=== PATIENT | female | born 1935 | race Caucasian/White ===

== ENCOUNTER 2016-10-08 12:39 | Emergency (ER) | payer MEDICARE, OTHER ==
[~2016-10-08] VITALS: Ht 149.9 cm; Wt 47.6 kg
[~2016-10-08 12:39] MED LIST: BABY81CH; BYSTOLIC; CALCCHW12; CALCITONIN; COLA100C2; CRES5TAB; FISH1000; GARLPOW; LASI20TA; LEVOXYL25 MCG; LIDO5DIS; LISI10TA4; LISI2.5T; MOM; NITR0.4S; RANEXA; THERGRAN; TOPR50TA; VITAMIN D50000 UNT; WELCHOL; XALATAN; ZEGERID; ZETI10TA; ZOCO20TA; ZYLO100T; [UNRECOGNIZED DRUG - OTHER]
[2016-10-08] MEDS ORDERED: LEVO75TA4 PO (13:02)
[2016-10-08] MEDS ORDERED: AMLO25TA PO (13:02)
[2016-10-08] MEDS ORDERED: BYST10TA2 PO (13:02)
[2016-10-08] MEDS ORDERED: ASPI81TA85 PO (13:02)
[2016-10-08] MEDS ORDERED: NEXI40CA PO (13:02)
[2016-10-08] MEDS ORDERED: ZETI10TA2 PO (13:02)
[2016-10-08] MEDS ORDERED: ISOS30TAB PO (13:02)
[2016-10-08] MEDS ORDERED: ALLO10TA PO (13:02)
[2016-10-08] MEDS ORDERED: LINZ290C PO (13:02)
[2016-10-08] MEDS ORDERED: LOSA50TA20 PO (13:02)
[2016-10-08] MEDS ORDERED: SIMV40TA2 PO (13:02)
--- NOTE | 2016-10-08 15:02 | REP ---
Left lower extremity Duplex Doppler venous ultrasound: Real time compression and duplex Doppler interrogation of the left lower extremity deep venous system is performed. The left common femoral, superficial femoral and popliteal veins are fully compressible with transducer pressure and demonstrate normal spontaneous and phasic flow, without evidence of deep venous thrombosis. Impression: No evidence of deep venous thrombosis of the left lower extremity femoral popliteal venous system. Signed by Jaylon Sterling MD 10/08/2016 02:53 P
--- NOTE | 2016-10-08 15:17 | REP ---
LEFT LOWER LEG: AP and lateral views of the left lower leg performed. There is no acute fracture or dislocation. There is chondrocalcinosis in the medial knee joint. IMPRESSION: No fracture or dislocation. Signed by Jaylon Sterling MD 10/08/2016 05:40 P
--- NOTE | 2016-10-08 15:23 | REP ---
LEFT FOOT SERIES: Four views of the left foot performed. There is an old healed fracture of the 1st metatarsal. No acute fracture or dislocation is seen. There is mild inferior calcaneal spurring. There is mild dorsal tarsal spurring and there is narrowing and subchondral sclerosis at the tarsometatarsal joints. IMPRESSION: Old healed fracture 1st metatarsal. No acute fracture or dislocation. Signed by Jaylon Sterling MD 10/08/2016 05:40 P
[2016-10-08 15:30] VITALS: BP 145/68
[2016-10-22] MEDS ORDERED: GAS180CA7 PO (15:52)
[2016-10-22] MEDS ORDERED: COLA100C3 PO (15:52)
[2016-10-22] MEDS ORDERED: CALC250T PO (15:52)
[2016-10-22] MEDS ORDERED: PREDNISONE ACETATE OU (15:52)
[2016-10-22] MEDS ORDERED: VITA200028 PO (15:52)
[2016-10-22] MEDS ORDERED: TIMOXEOPD OD (15:52)
[2016-10-22] MEDS ORDERED: OSTETAB4 PO (15:52)
[2016-10-29] MEDS ORDERED: REST0.05 OU (07:59)
== END 2016-10-08 15:34 | disposition home or self-care (01) ==
LOC: M ED 13:41
DX: M79.672 Pain in left foot (principal); I25.10 Atherosclerotic heart disease of native coronary artery without angina pectoris; E11.9 Type 2 diabetes mellitus without complications; I10 Essential (primary) hypertension; M10.9 Gout, unspecified; E03.9 Hypothyroidism, unspecified; Z88.0 Allergy status to penicillin; Z88.5 Allergy status to narcotic agent; Z91.040 Latex allergy status; Z88.8 Allergy status to other drugs, medicaments and biological substances; Z79.899 Other long term (current) drug therapy; Z79.82 Long term (current) use of aspirin; E78.00 Pure hypercholesterolemia, unspecified; K21.9 Gastro-esophageal reflux disease without esophagitis; H40.9 Unspecified glaucoma; E05.90 Thyrotoxicosis, unspecified without thyrotoxic crisis or storm; M19.90 Unspecified osteoarthritis, unspecified site

== ENCOUNTER → 2016-10-29 | Outpatient (CLI) | payer MEDICARE, OTHER ==
[~2016-10-29] VITALS: Ht 147.3 cm; Wt 47.6 kg
[~2016-10-29] MED LIST changes: +ALLO10TA PO; +AMLO25TA PO; +ASPI81TA85 PO; +BYST10TA2 PO; +CALC250T PO; +COLA100C3 PO; +GAS180CA7 PO; +ISOS30TAB PO; +LEVO75TA4 PO; +LIDOCAINE 2% INJ 100 MG/5 ML SDV (FOR ANES.) As Ordered ONE; +LINZ290C PO; +LOSA50TA20 PO; +NEXI40CA PO; +NS 1,000 ML IV ONE; +OSTETAB4 PO; +PREDNISONE ACETATE OU; +PROPOFOL 200 MG/20 ML VIAL As Ordered ONE; +REST0.05 OU; +SIMV40TA2 PO; +TIMOXEOPD OD; +VITA200028 PO; +ZETI10TA2 PO; +fentaNYL 100 MCG/2 ML INJECTION (J3010) As Ordered ONE
--- NOTE | 2016-10-29 08:46 | ROOR ---
Patient Name: Lucita Rahman Procedure Date: 10/29/2016 8:28 AM Date of : 1935 Age: 81 Room: [facility] Gender: Female Note Status: Finalized Procedure: Upper GI endoscopy Indications: Heartburn Providers: Abel CONTRERAS MD Referring MD: SABINE BURKS MD Requesting Provider: Medicines: Monitored Anesthesia Care Complications: No immediate complications. Procedure: Pre-Anesthesia Assessment: - The heart rate, respiratory rate, oxygen saturations, blood pressure, adequacy of pulmonary ventilation, and response to care were monitored throughout the procedure. The Endoscope was introduced through the mouth, and advanced to the second part of duodenum. The upper GI endoscopy was accomplished without difficulty. The patient tolerated the procedure well. Findings: A small hiatal hernia was present. The esophagus was normal. The stomach was normal. The examined duodenum was normal. Impression: - Small hiatal hernia. - Normal esophagus. - Normal stomach. - Normal examined duodenum. - No specimens collected. Recommendation: - Continue present medications. - Use Zegerid (omeprazole+bicarb) 40 mg tab by mouth daily. Abel Contreras MD Abel CONTRERAS MD 10/29/2016 8:46:06 AM This report has been signed electronically. Number of Addenda: 0 Note Initiated On: 10/29/2016 8:28 AM Estimated Blood Loss: Estimated blood loss: none.
[2016-10-29 09:10] VITALS: BP 137/80
== END | disposition home or self-care (01) ==
LOC: M OPP 07:07
PROVIDERS: ATTEND Internal Medicine Gastroenterology
DX: R12 Heartburn (principal); K44.9 Diaphragmatic hernia without obstruction or gangrene; I12.9 Hypertensive chronic kidney disease with stage 1 through stage 4 chronic kidney disease, or unspecified chronic kidney disease; E78.5 Hyperlipidemia, unspecified; R60.0 Localized edema; I99.9 Unspecified disorder of circulatory system; E03.9 Hypothyroidism, unspecified; K21.9 Gastro-esophageal reflux disease without esophagitis; D64.9 Anemia, unspecified; M19.90 Unspecified osteoarthritis, unspecified site; M41.9 Scoliosis, unspecified; M81.0 Age-related osteoporosis without current pathological fracture; Z78.0 Asymptomatic menopausal state; N18.3 Chronic kidney disease, stage 3 (moderate); M10.9 Gout, unspecified; H91.92 Unspecified hearing loss, left ear; Z92.3 Personal history of irradiation; Z95.5 Presence of coronary angioplasty implant and graft; Z88.0 Allergy status to penicillin; Z88.5 Allergy status to narcotic agent; Z88.2 Allergy status to sulfonamides; Z91.041 Radiographic dye allergy status; Z91.040 Latex allergy status; Z79.82 Long term (current) use of aspirin; Z79.52 Long term (current) use of systemic steroids; Z80.1 Family history of malignant neoplasm of trachea, bronchus and lung
CPT/HCPCS: 43235; 99156; J3010

== ENCOUNTER 2017-03-04 06:50 | Outpatient (CLI) | payer MEDICARE, OTHER ==
[~2017-03-04] VITALS: Ht 147.3 cm; Wt 47.0 kg
[~2017-03-04 06:50] MED LIST changes: -COLA100C3 PO; +COLA100C5 PO; -LIDOCAINE 2% INJ 100 MG/5 ML SDV (FOR ANES.) As Ordered ONE; -NS 1,000 ML IV ONE; -PROPOFOL 200 MG/20 ML VIAL As Ordered ONE; -ZETI10TA2 PO; +ZETI10TA30 PO; -fentaNYL 100 MCG/2 ML INJECTION (J3010) As Ordered ONE
[2017-03-04] MEDS ORDERED: COSYNTROPIN 0.25 MG/ML VIAL (J0835) IV ONE (07:00)
[2017-03-04 08:19] LABS: ANION GAP 9 MEQ/L (8-16); BLOOD UREA NITROGEN 12 MG/DL (7-18); CALCIUM LEVEL 8.7 MG/DL (8.8-10.2); CARBON DIOXIDE LEVEL 27 MEQ/L (21-32); CHLORIDE LEVEL 102 MEQ/L (98-107); CREATININE FOR GFR 0.88 MG/DL (0.55-1.02); GLOMERULAR FILTRATION RATE > 60.0 (>32); GLUCOSE, FASTING 85 MG/DL (83-110); POTASSIUM SERUM 4.1 MEQ/L (3.5-5.1); SODIUM LEVEL 138 MEQ/L (136-145)
== END 2017-03-04 09:30 | disposition home or self-care (01) ==
LOC: M INFU 06:50
PROVIDERS: ATTEND Internal Medicine Endocrinology, Diabetes & Metabolism
DX: I95.9 Hypotension, unspecified (principal); N18.3 Chronic kidney disease, stage 3 (moderate); K21.9 Gastro-esophageal reflux disease without esophagitis; I12.9 Hypertensive chronic kidney disease with stage 1 through stage 4 chronic kidney disease, or unspecified chronic kidney disease; E78.00 Pure hypercholesterolemia, unspecified; E16.2 Hypoglycemia, unspecified; Z95.5 Presence of coronary angioplasty implant and graft; E03.9 Hypothyroidism, unspecified; M54.5 Low back pain; H91.92 Unspecified hearing loss, left ear; M54.2 Cervicalgia; M19.90 Unspecified osteoarthritis, unspecified site; Z88.8 Allergy status to other drugs, medicaments and biological substances; Z91.040 Latex allergy status; Z79.82 Long term (current) use of aspirin; Z79.899 Other long term (current) drug therapy
CPT/HCPCS: 36415; 80048; 82533; 96372; J0834

== ENCOUNTER → 2017-05-12 | Outpatient (REF) | payer MEDICARE, OTHER ==
[2017-05-13 15:11] LABS: OSMOLALITY URINE 275 MOSM/KG (500-800)
[2017-05-13 15:25] LABS: FREE T4 1.27 NG/DL (0.76-1.46)
== END ==
LOC: M LAB REF 13:22
PROVIDERS: ATTEND Internal Medicine Nephrology
DX: E87.1 Hypo-osmolality and hyponatremia (principal)

== ENCOUNTER → 2017-11-24 | Outpatient (CLI) | payer MEDICARE, OTHER | LOC: M WHC 12:03 | DX: M81.0 Age-related osteoporosis without current pathological fracture (principal); Z12.31 Encounter for screening mammogram for malignant neoplasm of breast; M85.851 Other specified disorders of bone density and structure, right thigh; M85.852 Other specified disorders of bone density and structure, left thigh; M85.88 Other specified disorders of bone density and structure, other site | CPT/HCPCS: 77067 ==

== ENCOUNTER → 2018-09-21 | Outpatient (REF) | payer MEDICARE, OTHER ==
[~2018-09-21] MED LIST changes: -LOSA50TA20 PO; +LOSA50TA88 PO
[2018-09-21 18:54] LABS: HEMATOCRIT 31.8 % (36.0-47.0); HEMOGLOBIN 10.4 g/dl (12.0-15.5); MEAN CORPUSCULAR HEMOGLOBIN 27.7 pg (27.0-33.0); MEAN CORPUSCULAR HGB CONC 32.7 g/dl (32.0-36.5); MEAN CORPUSCULAR VOLUME 84.8 fl (80.0-96.0); PLATELET COUNT, AUTOMATED 215 10^3/uL (150-450); RED BLOOD COUNT 3.75 10^6/uL (4.00-5.40); WHITE BLOOD COUNT 5.4 10^3/uL (4.0-10.0)
[2018-09-21 19:12] LABS: ALBUMIN 3.8 GM/DL (3.2-5.2); BILIRUBIN,TOTAL 0.2 MG/DL (0.2-1.0); CREATININE FOR GFR 1.18 MG/DL (0.55-1.30); GLOMERULAR FILTRATION RATE 46.7 (>32); POTASSIUM SERUM 4.2 MEQ/L (3.5-5.1); THYROID STIMULATING HORMONE 2.14 uIU/ML (0.358-3.740); TOTAL PROTEIN 6.5 GM/DL (6.4-8.2)
== END ==
LOC: M LAB REF 17:17
PROVIDERS: ATTEND Family Medicine
DX: I10 Essential (primary) hypertension (principal)

== ENCOUNTER → 2018-12-29 | Outpatient (CLI) | payer MEDICARE, OTHER ==
[~2018-12-29] MED LIST changes: +METO-743; -TOPR50TA
--- NOTE | 2018-12-29 15:50 | REP ---
BILATERAL SCREENING DIGITAL MAMMOGRAM WITH 3D TOMOSYNTHESIS: There are no palpable abnormalities or other breast complaints. The patient had two excisional left breast biopsies in 1971 that were benign. The patient states she had a clinical breast examination in July 2018. The the patient states she performs self-breast examinations 12 times per year. The Tyrer-Cuzick Score is: 0.8% . 03/20/2015. The breasts are extremely dense, which lowers the sensitivity of mammography. There is no dominant mass, micro calcific cluster or architectural distortion that would indicate malignancy. There are benign calcifications, unchanged. There are no additional findings on 3D tomosynthesiss. There is no change from the prior study. Impression: BIRADS/ACR category 2 mammogram. Benign findings. Recommendation: Routine annual screening mammography. Because of the increased breast density, annual adjunctive breast MRI in addition to screening mammography is recommended. This mammogram was interpreted with the aid of a FDA approved computer-aided detection system. A. Negative mammogram reports should not delay biopsy if a dominant or clinically suspicious mass is present. B. Not all breast cancers are identified by mammography or tomosynthesis. C. Adenosis and dense breasts may obscure an underlying neoplasm. Patient letter M1 dense breasts. Electronically Signed by Jaylon Gary MD 12/29/2018 03:41 P
== END ==
LOC: M WHC 12:56
PROVIDERS: ATTEND Family Medicine
DX: Z12.31 Encounter for screening mammogram for malignant neoplasm of breast (principal)

== ENCOUNTER → 2019-02-19 | Outpatient (CLI) | payer MEDICARE, OTHER ==
[~2019-02-19] MED LIST changes: +PROHANCE 279.3MG/ML 5ML VIAL (A9576) As Ordered ONE; +ZETI10TA16 PO; -ZETI10TA30 PO
--- NOTE | 2019-02-20 16:18 | REPVR ---
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 Contrast material: PROHANCE; Contrast volume: 4.8 ml; Contrast route: IV; COMPARISON: No relevant prior brain imaging study is available. Prior brain and neck imaging studies have been requested. 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 It appears to enhance. However, there are no post-contrast T1-weighted axial images to compare with the pre-contrast T1 weighted axial images (series 301). The full inferior extent of the tumor is not seen on any of the axial images. It is seen only on the coronal and sagittal images. There is no susceptibility artifact to indicate parenchymal calcification or blood product. Mild/moderate age-appropriate global brain atrophy. Moderate small multifocal T2 hyperintensities in the cerebral white matter are nonspecific, but likely to be chronic small vessel ischemic change in a patient of this age group. Fourth ventricle and posterior fossa contents are unremarkable. Following intravenous contrast, there is no pathologic enhancement in the brain. No extra-axial fluid collections. Midline shift: No mass effect or midline shift. Ventricles: Ventricles are within normal limits of size and configuration. Bones/joints: The calvarium is unremarkable. Soft tissues: Normal. Sinuses: The paranasal sinuses are unremarkable. No acute sinusitis. Mastoid air cells: No significant mastoid disease. Orbits: The orbital contents are unremarkable. Other vasculature: The seventh and eighth cranial nerves and internal artery canals appear normal. No diffusion restriction to indicate a recent ischemic event. IMPRESSION: 1. 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 It enhances and expands the jugular foramen. 2. No acute intracranial abnormalities. 3. Mild/moderate age-appropriate global brain atrophy. 4. Moderate small multifocal T2 hyperintensities in the cerebral white matter are consistent with chronic small vessel ischemic change. Electronically signed by: Freddie Soto On 02/20/2019 16:18:00 PM
== END ==
LOC: M RAD 13:06
PROVIDERS: ATTEND Otolaryngology
DX: D35.6 Benign neoplasm of aortic body and other paraganglia (principal)
CPT/HCPCS: 70553; A9576

== ENCOUNTER → 2019-06-07 | Outpatient (REF) | payer MEDICARE, OTHER ==
[~2019-06-07] MED LIST changes: -PROHANCE 279.3MG/ML 5ML VIAL (A9576) As Ordered ONE; -SIMV40TA2 PO; +SIMV40TA20 PO
== END ==
LOC: M LAB REF 18:31
PROVIDERS: ATTEND Internal Medicine Nephrology
DX: N18.3 Chronic kidney disease, stage 3 (moderate) (principal)

== ENCOUNTER → 2020-03-07 | Outpatient (CLI) | payer MEDICARE, OTHER ==
[~2020-03-07] MED LIST changes: -ASPI81TA85 PO; +ASPI81TA86 PO
--- NOTE | 2020-03-07 16:26 | REPMRS ---
Patient History The patient states she had a clinical breast exam in 2019. No known family history of cancer. 2 benign excisional biopsies of the left breast, 1971. 3D TOMOSYNTHESIS WAS PERFORMED. [facility] lifetime risk for breast cancer is 0.5%. sandra maurer Digital Woman Screen Mammo: March 07, 2020 - Exam #: [id number] Bilateral CC and MLO view(s) were taken. Technologist: Nehal Mathis, Technologist Prior study comparison: December 29, 2018, bilateral digital woman screen mammo performed at [facility]. November 24, 2017, digital woman screen mammo performed at [facility]. FINDINGS: The breast tissue is extremely dense which could obscure a lesion on mammography. There has been no change in the appearance of the mammogram from the prior studies. There is a moderate amount of residual fibroglandular tissue which is fairly symmetric. There is no interval development of dominant mass, areas of architectural distortion, or clustered microcalcification typical of malignancy. Assessment: BI-RADS/ACR category 1 mammogram. Negative Mammogram. Recommendation Routine screening mammogram in 1 year (for women over age 40). This mammogram was interpreted with the aid of an FDA-approved computer-aided dectection system. Electronically Signed By: Jaylon Sterling MD 03/07/20 [id number]
--- NOTE | 2020-03-26 13:38 | DEXA ---
AP SPINE L1 - L4 1.108 -0.9 1.0 LT FEMUR TOTAL 0.694 -2.5 -0.3 LT NECK 0.643 -2.8 -0.5 RT FEMUR TOTAL 0.646 -2.9 -0.7 RT NECK 0.617 -3.0 -0.7 TOTAL BODY TOTAL OTHER COMMENTS: Normal bone densitometry of the spine. There is osteoporosis of the hips. The decreased density of the spine does represent a significant change. The decreased density of the left hip does represent significant change. The decreased density of the right hip does represent significant change. The density of the spine is decreased 21.4% since the initial exam on 11/19/2014. The decreased 17.0% since the most recent exam on 11/24/2017. The density of the left hip has decreased 14.8% since the initial exam on 12/10/2008. The density of the left hip has decreased 7.5% since the most recent exam on 11/24/2017. The density of the right hip has decreased 15.3% since the initial exam on 12/10/2008. The density of the right hip has decreased 5.7% since the most recent exam on 11/20/2013. FOLLOW-UP: Recommendation for the next bone density exam: 2 years. OLVIN
== END ==
LOC: M WHC 13:53
PROVIDERS: ATTEND Family Medicine
DX: Z12.31 Encounter for screening mammogram for malignant neoplasm of breast (principal); M81.0 Age-related osteoporosis without current pathological fracture

== ENCOUNTER → 2021-03-27 | Outpatient (CLI) | payer MEDICARE, OTHER ==
--- NOTE | 2021-03-27 15:46 | REPMRS ---
Patient History The patient states she had a clinical breast exam in October 2020. No known family history of cancer. 2 benign excisional biopsies of the left breast, 1971. Covid vaccines in left arm. unknown date for vaccine #1, Vaccine #2 08/25/20. Patient states no breast complaints today. Patient has signed MRS History Sheet. Digital Woman Screen Mammo: March 27, 2021 - Exam #: [id number] Bilateral CC and MLO view(s) were taken. Technologist: RT Federico Prior study comparison: March 07, 2020, bilateral digital woman screen mammo performed at [facility]. December 29, 2018, bilateral digital woman screen mammo performed at [facility]. FINDINGS: The breast tissue is extremely dense which could obscure a lesion on mammography. Screening. Digital screening (2D) mammography was performed bilaterally in the CC and MLO projections. Additionally, breast tomosynthesis (3D mammography) was performed bilaterally in the CC and MLO projections. Todays exam was compared to the prior exam/exams. By history, the patient has no complaints of a palpable breast abnormality or other significant breast complaints. The Volpara volumetric breast density category is D, the breasts are extremely dense which lowers the sensitivity of mammography. The breasts are unchanged in size and shape. There are no elsa-soft tissue densities or spiculated masses. There is no internal architectural distortion. There are no suspicious elsa-calcific clusters. Skin thickening or nipple retraction is not present. IMPRESSION: BI-RADS Category 2- Benign Findings. There is no evidence of malignant alteration of the breasts. Followup examination recommended in one year. This mammogram was read with the assistance of [facility] [employer],an FDA approved computer aided detection system for mammography. The lifetime Tyrer-Cuzick score is 0.3% Negative x-ray reports should not delay surgical consultation if a dominant or clinically suspicious mass is present. Not all breast cancers can be identified by mammography. Therefore, we recommend that you continue to perform regular breast self-examination and physical examination and then promptly contact your physician of any concerns or changes. Due to the density of the breasts, MRI/whole breast screening ultrasound is warranted. Adenosis and dense breasts may obscure an underlying neoplasm. No significant changes when compared with prior studies. Assessment: BI-RADS/ACR category 2 mammogram. Benign Findings. Recommendation Routine screening mammogram of both breasts in 1 year. Electronically Signed By: Kaden Chin MD 03/27/21 [id number]
== END ==
LOC: M WHC 14:52
PROVIDERS: ATTEND Family Medicine
DX: Z12.31 Encounter for screening mammogram for malignant neoplasm of breast (principal)

== ENCOUNTER → 2021-04-21 | Outpatient (CLI) | payer MEDICARE, OTHER ==
--- NOTE | 2021-04-21 16:26 | REP ---
INDICATION: Assess stenosis TECHNIQUE: Carotid ultrasonography was performed bilaterally FINDINGS: Right: CCA systolic: 99.7 centimeters/second CCA diastolic: 12.9 centimeters/second ICA systolic: 89.8 centimeters/second ICA diastolic: 24.1 centimeters/second ICA CCA ratio: 0.9 Left: CCA systolic: 60.4 centimeters/second CCA diastolic: 16.4 centimeters/second ICA systolic: 139.1 centimeters/second ICA diastolic: 38.6 centimeters/second ICA CCA ratio: 2.3 Vertebral artery: Right: Not visualized left: Antegrade flow Patchy echogenic material is seen along the carotid arterial dove some of which casts and acoustic shadow IMPRESSION: According to the SRU criteria 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 There is less than 50% stenosis in the right internal carotid artery. This is secondary to both calcified and noncalcified atheromatous plaque formation. The right vertebral artery was not visualized. <Electronically signed by Noah Messina > 04/21/21 [id number]
== END ==
LOC: M RAD 15:28
PROVIDERS: ATTEND Surgery Vascular Surgery
DX: I65.23 Occlusion and stenosis of bilateral carotid arteries (principal)

== ENCOUNTER → 2021-05-07 | Outpatient (REF) | payer MEDICARE, OTHER | LOC: M LAB REF 17:13 | PROVIDERS: ATTEND Internal Medicine Nephrology | DX: E83.42 Hypomagnesemia (principal) ==

== ENCOUNTER → 2021-06-30 | Outpatient (REF) | payer MEDICARE, OTHER ==
[~2021-06-30] MED LIST changes: +LOSA50TA28 PO; -LOSA50TA88 PO
[2021-06-30 17:13] LABS: MALB URINE SIEMENS 82.8 MG/L; MAU/CREAT RATIO 28.4 MCG/MG (0.0-30.0)
[2021-06-30 18:18] LABS: ALBUMIN 3.9 GM/DL (3.2-5.2); BILIRUBIN,TOTAL 0.3 MG/DL (0.2-1.0); CHOLESTEROL RISK RATIO 1.945 (<5); CREATININE FOR GFR 1.47 MG/DL (0.55-1.30); FREE T3 2.2 PG/ML (2.2-4.0); FREE T4 1.41 NG/DL (0.76-1.46); MAGNESIUM LEVEL 2.3 MG/DL (1.8-2.4); POTASSIUM SERUM 4.4 MEQ/L (3.5-5.1); THYROID STIMULATING HORMONE 3.15 uIU/ML (0.358-3.740); TOTAL 25(OH) VITAMIN D 48.8 NG/ML (30.0-100.0); TOTAL PROTEIN 6.6 GM/DL (6.4-8.2)
== END ==
LOC: M LABDRWAD 16:31
PROVIDERS: ATTEND Family Medicine
DX: R60.0 Localized edema (principal); E78.00 Pure hypercholesterolemia, unspecified

== ENCOUNTER → 2021-12-16 | Outpatient (CLI) | payer MEDICARE, OTHER ==
[2021-12-16 17:28] LABS: ALBUMIN 3.9 GM/DL (3.2-5.2); CALCIUM LEVEL 9.9 MG/DL (8.8-10.2); CHOLESTEROL RISK RATIO 1.645 (<5); CREATININE FOR GFR 1.16 MG/DL (0.55-1.30); FREE T3 2.5 PG/ML (2.2-4.0); FREE T4 1.32 NG/DL (0.76-1.46); GLOMERULAR FILTRATION RATE 47.3 (>32); POTASSIUM SERUM 3.3 MEQ/L (3.5-5.1); THYROID STIMULATING HORMONE 1.42 uIU/ML (0.358-3.740)
[2021-12-16 17:30] LABS: MALB URINE SIEMENS 35.8 MG/L; MAU/CREAT RATIO 27.9 MCG/MG (0.0-30.0)
[2021-12-16 18:04] LABS: TOTAL 25(OH) VITAMIN D 64.3 NG/ML (30.0-100.0)
== END ==
LOC: M ADAMS 13:25
PROVIDERS: ATTEND Family Medicine
DX: E03.8 Other specified hypothyroidism (principal); E55.9 Vitamin D deficiency, unspecified; E78.2 Mixed hyperlipidemia; I10 Essential (primary) hypertension

== ENCOUNTER → 2022-03-31 | Outpatient (CLI) | payer MEDICARE, OTHER | LOC: M WHC 14:03 | PROVIDERS: ATTEND Family Medicine | DX: Z12.31 Encounter for screening mammogram for malignant neoplasm of breast (principal); M81.0 Age-related osteoporosis without current pathological fracture ==

== ENCOUNTER → 2022-04-02 | Outpatient (REF) | payer MEDICARE, OTHER ==
[2022-04-02 18:32] LABS: ALBUMIN 3.7 GM/DL (3.2-5.2); BILIRUBIN,DIRECT 0.1 MG/DL (0.0-0.2); BILIRUBIN,TOTAL 0.2 MG/DL (0.2-1.0); CHOLESTEROL RISK RATIO 1.685 (<5); CREATININE FOR GFR 0.99 MG/DL (0.55-1.30); GLOMERULAR FILTRATION RATE 56.8 (>32); MAGNESIUM LEVEL 2.2 MG/DL (1.8-2.4); POTASSIUM SERUM 3.7 MEQ/L (3.5-5.1); TOTAL PROTEIN 6.6 GM/DL (6.4-8.2)
== END ==
LOC: M LABDRWAD 16:22
PROVIDERS: ATTEND Family Medicine
DX: E78.2 Mixed hyperlipidemia (principal); N18.32 Chronic kidney disease, stage 3b; R60.0 Localized edema

== ENCOUNTER → 2022-04-22 | Outpatient (CLI) | payer MEDICARE, OTHER | LOC: M ADAMS 13:10 | PROVIDERS: ATTEND Registered Nurse | DX: J40 Bronchitis, not specified as acute or chronic (principal) ==

== ENCOUNTER → 2022-04-28 | Outpatient (REF) | payer MEDICARE, OTHER | LOC: M LAB REF 17:17 | PROVIDERS: ATTEND Family Medicine | DX: R06.2 Wheezing (principal) ==

== ENCOUNTER → 2022-04-30 | Outpatient (CLI) | payer MEDICARE, OTHER | LOC: M RAD 13:28 | PROVIDERS: ATTEND Surgery Vascular Surgery | DX: I65.23 Occlusion and stenosis of bilateral carotid arteries (principal) ==

== ENCOUNTER → 2022-11-18 | Outpatient (CLI) | payer MEDICARE, OTHER ==
[2022-11-18 16:33] LABS: BASO % 0.4 % (0.0-1.0); EOS # 0.1 10^3/uL (0.0-0.5); EOS % 1.8 % (0.0-3.0); HEMATOCRIT 33.3 % (36.0-47.0); HEMOGLOBIN 10.8 g/dl (12.0-15.5); LYMPH # 1.4 10^3/uL (1.5-5.0); LYMPH % 18.3 % (24.0-44.0); MEAN CORPUSCULAR HEMOGLOBIN 29.2 pg (27.0-33.0); MEAN CORPUSCULAR HGB CONC 32.4 g/dl (32.0-36.5); MONO # 0.6 10^3/uL (0.0-0.8); MONO % 7.7 % (2.0-8.0); NEUTROPHILS # 5.5 10^3/uL (1.5-8.5); NEUTROPHILS % 71.5 % (36.0-66.0); PLATELET COUNT, AUTOMATED 227 10^3/uL (150-450); WHITE BLOOD COUNT 7.6 10^3/uL (4.0-10.0)
[2022-11-18 16:56] LABS: ALBUMIN 3.8 G/DL (3.2-5.2); BILIRUBIN,TOTAL 0.2 MG/DL (0.3-1.2); CALCIUM LEVEL 9.1 MG/DL (8.3-10.6); CREATININE FOR GFR 0.98 MG/DL (0.55-1.30); GLOMERULAR FILTRATION RATE 57.3 (>32); TOTAL PROTEIN 6.2 G/DL (5.7-8.2)
[2022-11-18 16:57] LABS: FREE T4 1.31 NG/DL (0.89-1.76); THYROID STIMULATING HORMONE 1.889 uIU/ML (0.55-4.78)
== END ==
LOC: M LABDRWAD 14:18
PROVIDERS: ATTEND Family Medicine
DX: E03.9 Hypothyroidism, unspecified (principal)

== ENCOUNTER → 2022-11-30 | Outpatient (CLI) | payer MEDICARE, OTHER ==
[2022-12-01 14:02] LABS: FERRITIN 9.6 NG/ML (7.3-270.7)
[2022-12-01 14:03] LABS: PERCENT SATURATION 10.7 % (13.2-45.0)
== END ==
LOC: M LABDRWAD 15:39
PROVIDERS: ATTEND Family Medicine
DX: D64.9 Anemia, unspecified (principal); E61.1 Iron deficiency

== ENCOUNTER → 2022-12-02 | Outpatient (REF) | payer MEDICARE, OTHER | LOC: M LAB REF 15:57 | PROVIDERS: ATTEND Nurse Practitioner Family | DX: D64.9 Anemia, unspecified (principal) ==

== ENCOUNTER → 2023-03-21 | Outpatient (REF) | payer MEDICARE, OTHER ==
[~2023-03-21] MED LIST changes: +EZET10TA58 PO; -ZETI10TA16 PO
[2023-03-21 19:41] LABS: BASO % 0.7 % (0.0-1.0); EOS # 0.1 10^3/uL (0.0-0.5); EOS % 2.7 % (0.0-3.0); HEMOGLOBIN 10.5 g/dl (12.0-15.5); LYMPH # 1.4 10^3/uL (1.5-5.0); LYMPH % 33.8 % (24.0-44.0); MEAN CORPUSCULAR HEMOGLOBIN 29.2 pg (27.0-33.0); MEAN CORPUSCULAR HGB CONC 32.8 g/dl (32.0-36.5); MEAN CORPUSCULAR VOLUME 88.9 fl (80.0-96.0); MONO # 0.4 10^3/uL (0.0-0.8); MONO % 9.6 % (2.0-8.0); NEUTROPHILS # 2.2 10^3/uL (1.5-8.5); NEUTROPHILS % 53.2 % (36.0-66.0); PLATELET COUNT, AUTOMATED 230 10^3/uL (150-450); WHITE BLOOD COUNT 4.1 10^3/uL (4.0-10.0)
== END ==
LOC: M LABDRWAD 17:31
PROVIDERS: ATTEND Family Medicine
DX: D64.9 Anemia, unspecified (principal)

== ENCOUNTER 2023-04-30 13:37 | Emergency (ER) | payer MEDICARE, OTHER ==
[~2023-04-30] VITALS: Ht 144.8 cm; Wt 97.0 kg
[2023-04-30 14:56] LABS: BASO % 0.8 % (0.0-1.0); EOS % 0.8 % (0.0-3.0); HEMATOCRIT 34.2 % (36.0-47.0); HEMOGLOBIN 11.4 g/dl (12.0-15.5); LYMPH # 1.5 10^3/uL (1.5-5.0); LYMPH % 30.9 % (24.0-44.0); MEAN CORPUSCULAR HGB CONC 33.3 g/dl (32.0-36.5); MONO # 0.4 10^3/uL (0.0-0.8); MONO % 8.8 % (2.0-8.0); NEUTROPHILS # 2.8 10^3/uL (1.5-8.5); NEUTROPHILS % 58.5 % (36.0-66.0); PLATELET COUNT, AUTOMATED 236 10^3/uL (150-450); RED BLOOD COUNT 3.93 10^6/uL (4.00-5.40); WHITE BLOOD COUNT 4.8 10^3/uL (4.0-10.0)
[2023-04-30 15:10] LABS: ERYTHROCYTE SEDIMENTATION RATE 12 mm/hr (0-30)
[2023-04-30 15:16] LABS: PROTHROMBIN TIME 12.9 SECONDS (12.5-14.5)
[2023-04-30 15:26] LABS: C REACTIVE PROTEIN QUANTITATIV < 0.40 MG/DL (<1.0); CK-MB VALUE MASS 1.4 NG/ML (<3.6); ETHYL ALCOHOL (ETHANOL) < 0.003 % (0.000-0.010)
[2023-04-30 15:28] LABS: BLOOD UREA NITROGEN 13 MG/DL (9-23); CARBON DIOXIDE LEVEL 27 MMOL/L (20-31); CHLORIDE LEVEL 97 MMOL/L (98-107); CPK CREATINE PHOSPHOKINASE 74 U/L (34-145); CREATININE FOR GFR 0.87 MG/DL (0.55-1.30); GLOMERULAR FILTRATION RATE > 60.0 (>32); GLUCOSE, FASTING 95 MG/DL (74-106); MAGNESIUM LEVEL 2.2 MG/DL (1.8-2.4); MB/CK RELATIVE INDEX 1.89 (< OR =4); POTASSIUM SERUM 4.1 MMOL/L (3.5-5.1); SODIUM LEVEL 132 MMOL/L (136-145)
[2023-04-30 15:30] LABS: FREE T4 1.34 NG/DL (0.89-1.76); THYROID STIMULATING HORMONE 1.974 uIU/ML (0.55-4.78)
[2023-04-30 15:38] LABS: HEMOGLOBIN A1c 5.2 % (4.0-6.0)
[2023-04-30] MEDS ORDERED: **hydrALAZINE HCL** 25 MG TAB PO ONE (15:45)
[2023-04-30 15:48] LABS: AMPHETAMINES LEVEL URINE NEGATIVE (NEGATIVE)
[2023-04-30 15:49] LABS: BARBITURATES URINE NEGATIVE (NEGATIVE); BENZODIAZEPINES URINE NEGATIVE (NEGATIVE); CANNABINOIDS URINE NEGATIVE (NEGATIVE); COCAINE METABOLITE URINE NEGATIVE (NEGATIVE); METHADONE URINE NEGATIVE (NEGATIVE); OPIATES URINE NEGATIVE (NEGATIVE); PHENCYCLIDINE URINE NEGATIVE (NEGATIVE)
[2023-04-30 15:50] VITALS: BP 202/89
[2023-04-30 16:04] LABS: CK-MB VALUE MASS 1.5 NG/ML (<3.6)
[2023-04-30 16:05] LABS: MB/CK RELATIVE INDEX 1.63 (< OR =4)
[2023-04-30] MEDS ORDERED: BLOOKIT21 XX ×2 (18:40→18:43)
[2023-04-30] MEDS ORDERED: GLUC1TES2 XX ×2 (18:40→18:43)
[2023-04-30] MEDS ORDERED: ALCOPAD25 TOP ×2 (18:40→18:43)
[2023-04-30] MEDS ORDERED: LANC30MI XX ×2 (18:40→18:43)
[2023-04-30 18:45] VITALS: BP 171/90; TEMP 96.9; O2SAT 97
== END 2023-04-30 19:07 | disposition home or self-care (01) ==
LOC: M ED 13:37
DX: R07.89 Other chest pain (principal); I10 Essential (primary) hypertension; E16.2 Hypoglycemia, unspecified; Z95.5 Presence of coronary angioplasty implant and graft; Z79.82 Long term (current) use of aspirin; Z79.899 Other long term (current) drug therapy; Z88.2 Allergy status to sulfonamides; Z88.0 Allergy status to penicillin; Z88.1 Allergy status to other antibiotic agents; Z88.5 Allergy status to narcotic agent; Z88.8 Allergy status to other drugs, medicaments and biological substances

== ENCOUNTER → 2023-05-16 | Outpatient (REF) | payer MEDICARE, OTHER ==
[~2023-05-16] MED LIST changes: +ALCOPAD25 TOP; +BLOOKIT21 XX; +GLUC1TES2 XX; +LANC30MI XX
[2023-05-17 09:47] LABS: BASO % 0.9 % (0.0-1.0); EOS # 0.1 10^3/uL (0.0-0.5); EOS % 1.7 % (0.0-3.0); HEMATOCRIT 36.7 % (36.0-47.0); HEMOGLOBIN 11.4 g/dl (12.0-15.5); LYMPH # 1.6 10^3/uL (1.5-5.0); MEAN CORPUSCULAR HEMOGLOBIN 29.2 pg (27.0-33.0); MEAN CORPUSCULAR HGB CONC 31.1 g/dl (32.0-36.5); MEAN CORPUSCULAR VOLUME 93.9 fl (80.0-96.0); MONO # 0.4 10^3/uL (0.0-0.8); MONO % 7.7 % (2.0-8.0); NEUTROPHILS # 2.6 10^3/uL (1.5-8.5); NEUTROPHILS % 55.3 % (36.0-66.0); PLATELET COUNT, AUTOMATED 228 10^3/uL (150-450); RED BLOOD COUNT 3.91 10^6/uL (4.00-5.40); WHITE BLOOD COUNT 4.7 10^3/uL (4.0-10.0)
[2023-05-17 10:03] LABS: FREE T4 1.46 NG/DL (0.89-1.76); THYROID STIMULATING HORMONE 1.326 uIU/ML (0.55-4.78)
== END ==
LOC: M LABDRWAD 09:08
PROVIDERS: ATTEND Nurse Practitioner Family
DX: E03.9 Hypothyroidism, unspecified (principal); D64.9 Anemia, unspecified

== ENCOUNTER 2023-05-26 13:42 | Emergency (ER) | payer MEDICARE, OTHER ==
[~2023-05-26] VITALS: Ht 144.8 cm; Wt 43.2 kg
[2023-05-26 14:04] LABS: BASO % 0.6 % (0.0-1.0); EOS % 0.5 % (0.0-3.0); HEMATOCRIT 36.2 % (36.0-47.0); HEMOGLOBIN 12.3 g/dl (12.0-15.5); LYMPH # 1.7 10^3/uL (1.5-5.0); LYMPH % 27.6 % (24.0-44.0); MEAN CORPUSCULAR HEMOGLOBIN 29.6 pg (27.0-33.0); MEAN CORPUSCULAR VOLUME 87.2 fl (80.0-96.0); MONO # 0.5 10^3/uL (0.0-0.8); MONO % 7.5 % (2.0-8.0); NEUTROPHILS % 63.5 % (36.0-66.0); PLATELET COUNT, AUTOMATED 239 10^3/uL (150-450); RED BLOOD COUNT 4.15 10^6/uL (4.00-5.40); WHITE BLOOD COUNT 6.3 10^3/uL (4.0-10.0)
[2023-05-26 14:21] VITALS: BP 135/68; TEMP 96; O2SAT 97
[2023-05-26 14:31] LABS: INR 0.88; PROTHROMBIN TIME 11.7 SECONDS (12.5-14.5)
[2023-05-26 14:33] LABS: BLOOD UREA NITROGEN 13 MG/DL (9-23); CARBON DIOXIDE LEVEL 25 MMOL/L (20-31); CHLORIDE LEVEL 97 MMOL/L (98-107); CK-MB VALUE MASS 2.8 NG/ML (<3.6); CREATININE FOR GFR 0.83 MG/DL (0.55-1.30); GLOMERULAR FILTRATION RATE > 60.0 (>32); GLUCOSE, FASTING 101 MG/DL (74-106); PARTIAL THROMBOPLASTIN TIME 31.8 SECONDS (24.8-34.2); POTASSIUM SERUM 3.8 MMOL/L (3.5-5.1); SODIUM LEVEL 133 MMOL/L (136-145)
[2023-05-26 14:35] VITALS: O2SAT 97
[2023-05-26 14:40] LABS: CPK CREATINE PHOSPHOKINASE 76 U/L (34-145); MB/CK RELATIVE INDEX 3.68 (< OR =4)
[2023-05-26 14:50] VITALS: O2SAT 97
[2023-05-26 15:34] VITALS: BP 122/68; O2SAT 98
[2023-05-26 15:52] LABS: CK-MB VALUE MASS 2.8 NG/ML (<3.6)
[2023-05-26 15:54] LABS: MB/CK RELATIVE INDEX 3.73 (< OR =4)
[2023-05-26 16:01] LABS: RSV AMPLIFICATION NEGATIVE (NEGATIVE)
[2023-05-26] MEDS ORDERED: ISOVUE-370 76% 100ML VIAL As Ordered ONE (16:01)
[2023-05-26] MEDS ORDERED: HEPARIN DRIP 25,000 UNITS in IV 1 EA IV SCH (16:45)
[2023-05-26] MEDS ORDERED: HEPARIN SOD (PORCINE) 5000UNITS/ML 1ML VIAL/SYRINGE IV ONE (16:45)
[2023-05-26] MEDS ORDERED: ASPIRIN 81MG CHEW TABLET PO ONE (16:45)
[2023-05-26 18:16] VITALS: BP 148/70; TEMP 99.4; O2SAT 97
== END 2023-05-26 18:25 | disposition short-term general hospital (02) ==
LOC: EDBD 13:42 → M ED 13:42
DX: I21.4 Non-ST elevation (NSTEMI) myocardial infarction (principal); I25.10 Atherosclerotic heart disease of native coronary artery without angina pectoris; I10 Essential (primary) hypertension; Z95.5 Presence of coronary angioplasty implant and graft; Z79.82 Long term (current) use of aspirin; Z79.899 Other long term (current) drug therapy; Z88.2 Allergy status to sulfonamides; Z88.0 Allergy status to penicillin; Z88.5 Allergy status to narcotic agent; Z88.1 Allergy status to other antibiotic agents; Z91.89 Other specified personal risk factors, not elsewhere classified
CPT/HCPCS: 70450; 71045; 71275; 80048; 82550; 82553; 84484; 85025; 85610; 85730; 87631; 93005; 93041; 94760; 99285; Q9967

== ENCOUNTER 2024-02-07 16:42 | Emergency (ER) | payer MEDICARE, OTHER ==
[~2024-02-07] VITALS: Ht 144.8 cm; Wt 42.7 kg
[2024-02-07 17:40] LABS: EOS # 0.1 10^3/uL (0.0-0.5); EOS % 2.3 % (0.0-3.0); HEMATOCRIT 33.4 % (36.0-47.0); HEMOGLOBIN 11.3 g/dl (12.0-15.5); LYMPH # 1.1 10^3/uL (1.5-5.0); LYMPH % 28.7 % (24.0-44.0); MEAN CORPUSCULAR HEMOGLOBIN 29.1 pg (27.0-33.0); MEAN CORPUSCULAR HGB CONC 33.8 g/dl (32.0-36.5); MEAN CORPUSCULAR VOLUME 86.1 fl (80.0-96.0); MONO # 0.4 10^3/uL (0.0-0.8); MONO % 9.4 % (2.0-8.0); NEUTROPHILS # 2.2 10^3/uL (1.5-8.5); NEUTROPHILS % 58.1 % (36.0-66.0); PLATELET COUNT, AUTOMATED 241 10^3/uL (150-450); RED BLOOD COUNT 3.88 10^6/uL (4.00-5.40); WHITE BLOOD COUNT 3.8 10^3/uL (4.0-10.0)
[2024-02-07 18:02] LABS: ALKALINE PHOSPHATASE 80 U/L (46-116); ALT/SGPT 11 U/L (7.0-40); AST/SGOT 17 U/L (<34); BILIRUBIN,DIRECT < 0.1 MG/DL (<0.4); BILIRUBIN,TOTAL 0.3 MG/DL (0.3-1.2); CK-MB VALUE MASS 2.7 NG/ML (<3.6)
[2024-02-07 18:05] LABS: THYROID STIMULATING HORMONE 1.501 uIU/ML (0.55-4.78)
[2024-02-07 18:15] LABS: CPK CREATINE PHOSPHOKINASE 98 U/L (34-145); MB/CK RELATIVE INDEX 2.75 (< OR =4)
[2024-02-07] MEDS ORDERED: NITROGLYCERIN 0.4MG SUBL TABLET As Ordered ONE (19:24)
[2024-02-07 19:34] VITALS: BP 196/93
[2024-02-07] MEDS: NITROGLYCERIN 0.4MG SUBL TABLET SL PRN (19:34)
[2024-02-07] MEDS: FAMOTIDINE 20MG/2ML VIAL IVP ONE (20:00)
[2024-02-07] MEDS: HEPARIN DRIP 25,000 UNITS in IV 1 EA IV SCH (20:07)
[2024-02-07 20:23] LABS: INR 1.15; PARTIAL THROMBOPLASTIN TIME 32.4 SECONDS (24.8-34.2); PROTHROMBIN TIME 14.4 SECONDS (12.5-14.5)
[2024-02-07] MEDS ORDERED: ISOVUE-370 76% 100ML VIAL As Ordered ONE (20:44)
[2024-02-08] MEDS ORDERED: SENN-122 PO (01:33)
[2024-02-08] MEDS ORDERED: ERGO500029 PO (01:33)
[2024-02-08] MEDS ORDERED: POTA-149 PO (01:33)
[2024-02-08] MEDS ORDERED: CARV3.12 PO (01:33)
[2024-02-08] MEDS ORDERED: SIME80CH5 PO (01:33)
[2024-02-08] MEDS ORDERED: FURO20TA2 PO (01:33)
[2024-02-08] MEDS ORDERED: CLOP75TA2 PO (01:33)
[2024-02-08] MEDS ORDERED: PANT40TA29 PO (01:33)
[2024-02-08] MEDS ORDERED: ASPI-615 PO (01:33)
[2024-02-08] MEDS ORDERED: REFR0.1D OU (01:33)
[2024-02-08] MEDS ORDERED: HOME MED LIST COMPLETE! XX SCH (01:35)
[2024-02-08] MEDS: ACETAMINOPHEN TAB 650MG DOSE (2X325MG) PO PRN (02:31)
[2024-02-08 03:21] LABS: HEMOGLOBIN A1c 5.6 % (4.0-6.0)
[2024-02-08 03:30] LABS: CHOLESTEROL RISK RATIO 3.02 (<5); HDL CHOLESTEROL 89.6 MG/DL (>40); NON-HDL-C 181.4 MG/DL
[2024-02-08] MEDS: LEVOTHYROXINE 75MCG TABLET (0.075MG) PO SCH (06:03)
[2024-02-08 07:30] VITALS: BP 179/80; TEMP 97
[2024-02-08 07:31] VITALS: O2SAT 99
[2024-02-08] MEDS ORDERED: EZETIMIBE 10MG TABLET (ZETIA) PO SCH (09:00)
[2024-02-08] MEDS ORDERED: ASPIRIN 325 MG TAB PO SCH (09:00)
[2024-02-08] MEDS ORDERED: allopurinoL 100 MG TAB PO SCH (09:00)
[2024-02-08] MEDS ORDERED: SIMVASTATIN 20 MG TAB PO SCH (09:00)
== END 2024-02-08 07:48 | disposition short-term general hospital (02) ==
LOC: EDBD 16:42 → M ED 16:42
DX: I21.4 Non-ST elevation (NSTEMI) myocardial infarction (principal); R55 Syncope and collapse; I25.119 Atherosclerotic heart disease of native coronary artery with unspecified angina pectoris; I25.2 Old myocardial infarction; E11.9 Type 2 diabetes mellitus without complications; I10 Essential (primary) hypertension; K21.9 Gastro-esophageal reflux disease without esophagitis; E03.9 Hypothyroidism, unspecified; E78.5 Hyperlipidemia, unspecified; Z88.1 Allergy status to other antibiotic agents; Z88.2 Allergy status to sulfonamides; Z88.5 Allergy status to narcotic agent; Z88.8 Allergy status to other drugs, medicaments and biological substances; Z79.1 Long term (current) use of non-steroidal anti-inflammatories (NSAID); Z79.899 Other long term (current) drug therapy
CPT/HCPCS: 36415; 71045; 71275; 80047; 80061; 80076; 82550; 82553; 83036; 84443; 84484; 85025; 85610; 85730; 93005; 96365; 96366; 96374; 99285; Q9967

== ENCOUNTER → 2024-04-09 | Outpatient (CLI) | payer MEDICARE, OTHER ==
[~2024-04-09] MED LIST changes: +ASPI-615 PO; -BYST10TA2 PO; +BYST1TAB3 PO; +CARV3.12 PO; +CLOP75TA2 PO; +ERGO500029 PO; +FURO20TA2 PO; +PANT40TA29 PO; +POTA-149 PO; +REFR0.1D OU; +SENN-122 PO; +SIME80CH5 PO
== END ==
LOC: M RAD 15:00
PROVIDERS: ATTEND Physician Assistant
DX: I65.29 Occlusion and stenosis of unspecified carotid artery (principal)

== ENCOUNTER → 2024-04-17 | Outpatient (REF) | payer MEDICARE, OTHER ==
[2024-04-17 18:52] LABS: FERRITIN 9.2 NG/ML (7.3-270.7); PERCENT SATURATION 8.2 % (13.2-45.0)
[2024-04-17 18:54] LABS: FOLATE 15.4 NG/ML (>5.4)
== END ==
LOC: M LAB REF 18:16
PROVIDERS: ATTEND Internal Medicine Nephrology
DX: N18.9 Chronic kidney disease, unspecified (principal); D63.1 Anemia in chronic kidney disease

== ENCOUNTER 2024-05-21 10:50 | Outpatient (CLI) | payer MEDICARE, OTHER ==
[~2024-05-21] VITALS: Ht 144.8 cm; Wt 43.2 kg
[~2024-05-21 10:50] MED LIST changes: +ALBUTEROL SULFATE 2.5MG/0.5ML INH NEB SOLN INH PRN; +EPINEPHrine INJ 1 MG/ML 1ML AMP IM PRN; +diphenhydrAMINE 50MG/ML VIAL IV PRN
[2024-05-21] MEDS ORDERED: NS (Normal Saline) 0.9% 1,000 ML IV SCH (11:30)
[2024-05-21 11:35] VITALS: BP 157/72; O2SAT 99
[2024-05-21] MEDS: IRON SUCROSE 300 MG in NS 250 ML OVER 90 MIN. IV ONE (12:30)
[2024-05-21 12:33] VITALS: BP 180/82; O2SAT 96
[2024-05-21] MEDS: methylPREDNISolone 125MG 2ML VIAL IV PRN (12:40)
[2024-05-21] MEDS ORDERED: AMLO1TAB24 (13:02)
[2024-05-21] MEDS ORDERED: APAP325T4 PO (13:02)
== END 2024-05-21 12:43 ==
LOC: M INFU 10:50
PROVIDERS: ATTEND Internal Medicine Nephrology
DX: E61.1 Iron deficiency (principal); R07.9 Chest pain, unspecified; T45.4X5A Adverse effect of iron and its compounds, initial encounter; I10 Essential (primary) hypertension; E78.5 Hyperlipidemia, unspecified; K21.9 Gastro-esophageal reflux disease without esophagitis; Z88.1 Allergy status to other antibiotic agents; Z88.2 Allergy status to sulfonamides; Z88.5 Allergy status to narcotic agent; Z91.048 Other nonmedicinal substance allergy status; Z79.1 Long term (current) use of non-steroidal anti-inflammatories (NSAID); Z79.899 Other long term (current) drug therapy
CPT/HCPCS: 36415; 71045; 80048; 80076; 82550; 82553; 83690; 84439; 84443; 84484; 85025; 93005; 93041; 94760; 96374; 96375; 99285; J1756; J2919

== ENCOUNTER 2024-05-21 12:48 | Emergency (ER) | payer MEDICARE, OTHER ==
[~2024-05-21] VITALS: Ht 144.8 cm; Wt 44.4 kg
[~2024-05-21 12:48] MED LIST changes: -ALBUTEROL SULFATE 2.5MG/0.5ML INH NEB SOLN INH PRN; -EPINEPHrine INJ 1 MG/ML 1ML AMP IM PRN; -diphenhydrAMINE 50MG/ML VIAL IV PRN
[2024-05-21] MEDS ORDERED: APAP325T4 PO (13:02)
[2024-05-21] MEDS ORDERED: AMLO1TAB24 (13:02)
[2024-05-21 13:54] LABS: BASO # 0.1 10^3/uL (0.0-0.2); EOS # 0.1 10^3/uL (0.0-0.5); EOS % 1.2 % (0.0-3.0); HEMATOCRIT 30.6 % (36.0-47.0); HEMOGLOBIN 9.7 g/dl (12.0-15.5); LYMPH % 34.3 % (24.0-44.0); MEAN CORPUSCULAR HEMOGLOBIN 27.6 pg (27.0-33.0); MEAN CORPUSCULAR HGB CONC 31.7 g/dl (32.0-36.5); MEAN CORPUSCULAR VOLUME 87.2 fl (80.0-96.0); MONO # 0.5 10^3/uL (0.0-0.8); MONO % 9.4 % (2.0-8.0); NEUTROPHILS # 3.1 10^3/uL (1.5-8.5); NEUTROPHILS % 53.8 % (36.0-66.0); PLATELET COUNT, AUTOMATED 239 10^3/uL (150-450); RED BLOOD COUNT 3.51 10^6/uL (4.00-5.40); WHITE BLOOD COUNT 5.8 10^3/uL (4.0-10.0)
[2024-05-21 14:11] LABS: CK-MB VALUE MASS < 1.0 NG/ML (<3.6)
[2024-05-21 14:13] LABS: LIPASE 43 U/L (12-53)
[2024-05-21 14:14] LABS: CPK CREATINE PHOSPHOKINASE 68 U/L (34-145); MB/CK RELATIVE INDEX 1.47 (< OR =4)
[2024-05-21 14:15] LABS: ALBUMIN 3.7 G/DL (3.2-5.2); ALKALINE PHOSPHATASE 99 U/L (35-104); ALT/SGPT < 9 U/L (7.0-40); AST/SGOT 11 U/L (<34); BILIRUBIN,DIRECT < 0.1 MG/DL (<0.4); BILIRUBIN,TOTAL 0.2 MG/DL (0.3-1.2); BLOOD UREA NITROGEN 14 MG/DL (9-23); CALCIUM LEVEL 9.4 MG/DL (8.3-10.6); CARBON DIOXIDE LEVEL 28 MMOL/L (20-31); CHLORIDE LEVEL 104 MMOL/L (98-107); CREATININE FOR GFR 0.83 MG/DL (0.55-1.30); FREE T4 1.93 NG/DL (0.89-1.76); GLOMERULAR FILTRATION RATE > 60.0 (>32); GLUCOSE, FASTING 114 MG/DL (74-106); POTASSIUM SERUM 3.6 MMOL/L (3.5-5.1); SODIUM LEVEL 140 MMOL/L (136-145); TOTAL PROTEIN 6.8 G/DL (5.7-8.2)
[2024-05-21 14:16] LABS: THYROID STIMULATING HORMONE 0.293 uIU/ML (0.55-4.78)
[2024-05-21 14:38] LABS: CK-MB VALUE MASS < 1.0 NG/ML (<3.6)
[2024-05-21 14:39] LABS: CPK CREATINE PHOSPHOKINASE 59 U/L (34-145); MB/CK RELATIVE INDEX 1.69 (< OR =4)
[2024-05-21 14:45] VITALS: BP 154/70; O2SAT 98
[2024-05-21 15:10] VITALS: TEMP 97.7
== END 2024-05-21 15:10 | disposition home or self-care (01) ==
LOC: M ED 12:48
DX: R07.9 Chest pain, unspecified (principal); T45.4X5A Adverse effect of iron and its compounds, initial encounter; I10 Essential (primary) hypertension; E78.5 Hyperlipidemia, unspecified; K21.9 Gastro-esophageal reflux disease without esophagitis; Z88.1 Allergy status to other antibiotic agents; Z88.2 Allergy status to sulfonamides; Z88.5 Allergy status to narcotic agent; Z88.8 Allergy status to other drugs, medicaments and biological substances; Z79.1 Long term (current) use of non-steroidal anti-inflammatories (NSAID); Z79.899 Other long term (current) drug therapy
CPT/HCPCS: 36415; 71045; 80048; 80076; 82550; 82553; 83690; 84439; 84443; 84484; 85025; 93005; 93041; 94760; 99285; J1756; J2919

== ENCOUNTER → 2025-04-19 | Outpatient (CLI) | payer MEDICARE, OTHER ==
[~2025-04-19] MED LIST changes: +AMLO1TAB24; +APAP325T4 PO; +ISOS-18 PO; -ISOS30TAB PO
== END ==
LOC: M WHC 14:04
PROVIDERS: ATTEND Physician Assistant
DX: I65.23 Occlusion and stenosis of bilateral carotid arteries (principal)